=== PATIENT | male | born 1960 | race Hispanic/Latino ===

== ENCOUNTER → 2018-08-30 | Outpatient (CLI) | payer BC ==
--- NOTE | 2018-08-30 15:53 | Diagnostic Imaging Report ---
Exam: Left shoulder 2 views History: Pain Comparison: None. Findings: No fracture or malalignment. Joint spaces preserved. No abnormal soft tissue calcification or soft tissue defect. Impression: No acute osseous abnormality Signed by: Dr. Gustavo Snyder M.D. on 08/30/2018 3:50 PM
== END ==
LOC: RAD 15:15
PROVIDERS: ATTEND Family Medicine
DX: M25.512 Pain in left shoulder (principal)